=== PATIENT | male | born 1970 | race Caucasian/White ===

== ENCOUNTER 2021-04-25 00:15 | Emergency (ER) | payer MEDICAID ==
[2021-04-25] MEDS ORDERED: cefTRIAXone 1 GM Vial IM ONE (00:57)
--- NOTE | 2021-04-25 00:57 | EDM.PDOC ---
ED HPI GENERAL MEDICAL PROBLEM - General Chief Complaint: ENT Problem Stated Complaint: RIGHT EAR PAIN Time Seen by Provider: 04/25/21 00:57 Source of Information: Reports: Patient History Limitations: Reports: No Limitations - History of Present Illness INITIAL COMMENTS - FREE TEXT/NARRATIVE: pt arrived with severe pain n the rt ear. He has not had drainage from the ear Onset: Gradual, Other (last 3 days) Duration: Hour(s): Location: Reports: Face Associated Symptoms: Reports: No Other Symptoms Right Ear Pain Score (Numeric/FACES): 8 - Related Data Allergies Allergy/AdvReac Type Severity Reaction Status Date / Time No Known Allergies Allergy Verified 04/25/21 00:41 Home Meds: Home Meds NK [No Known Home Meds] 04/25/21 [History] Past Medical History HEENT History: Reports: Impaired Vision Genitourinary History: Reports: Renal Calculus Psychiatric History: Reports: Addiction, Other (See Below) Other Psychiatric History: hx of addiction - Infectious Disease History Infectious Disease History: Reports: Chicken Pox - Past Surgical History HEENT Surgical History: Reports: Tonsillectomy Social & Family History - Tobacco Use Tobacco Use Status *Q: Heavy Tobacco User Years of Tobacco use: 30 Packs/Tins Daily: 1 - Caffeine Use Caffeine Use: Reports: Soda - Recreational Drug Use Recreational Drug Use: Yes 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 ) Respiratory: Reports: No Symptoms Cardiovascular: Reports: No Symptoms Endocrine: Reports: No Symptoms GI/Abdominal: Reports: No Symptoms : Reports: No Symptoms Musculoskeletal: Reports: No Symptoms Skin: Reports: No Symptoms Neurological: Reports: No Symptoms Psychiatric: Reports: Anxiety ED EXAM, ENT - Physical Exam Exam: See Below Text/Narrative:: pt arrived with severe rt ear pain. Exam Limited By: No Limitations General Appearance: Alert, Anxious, Moderate Distress Ears: Other ( rt drum is very red. There is fluid behind the drum and there does appear to be some bulging. ) Nose: Normal Inspection Mouth/Throat: Normal Inspection Head: Atraumatic Neck: Normal Inspection Respiratory/Chest: No Respiratory Distress GI/Abdominal: Soft, Non-Tender Course - Vital Signs Last Recorded V/S: Last Vital Signs Temp 36.3 C 04/25/21 00:37 Pulse 73 04/25/21 00:37 Resp 16 04/25/21 00:37 BP 177/119 H 04/25/21 00:37 Pulse Ox 97 04/25/21 00:37 - Orders/Labs/Meds Meds: Medications Discontinued Medications Generic Name Dose Route Start Last Admin Trade Name Yolande PRN Reason Stop Dose Admin Hydrocodone Bitart/Acetaminophen 1 tab 04/25/21 01:03 04/25/21 01:15 Acetaminophen/Hydrocodone 325-5 Mg Tab PO 04/25/21 01:04 1 tab ONETIME ONE Administration Ceftriaxone Sodium 1 gm 04/25/21 00:57 04/25/21 01:16 Ceftriaxone 1 Gm Vial IM 04/25/21 00:58 1 gm ONETIME ONE Administration Lidocaine HCl Confirm 04/25/21 01:11 04/25/21 01:16 Lidocaine 1% 5 Ml Sdv Administered 04/25/21 01:12 Not Given Dose 5 ml .ROUTE .STK-MED ONE Lidocaine HCl 5 ml 04/25/21 01:16 04/25/21 01:17 Lidocaine 1% 5 Ml Sdv INJECT 04/25/21 01:17 2.1 ml ONETIME ONE Administration - Re-Assessments/Exams Free Text/Narrative Re-Assessment/Exam: 05/05/21 22:30 pt arrived with severe rt sided ear pain. He was given rocephen 1 gm. 05/05/21 22:31 pt was given norco 5/325 po for discomfort. Departure - Departure Time of Disposition: 00:58 Disposition: Home, Self-Care 01 Condition: Fair Clinical Impression: Otitis media - Discharge Information Instructions: Otitis Media, Adult, [id number] Referrals: PCP,None [Primary Care Provider] - Forms: ED Department Discharge Care Plan Goals: tylenol and motrin for pain. push fluids, amoxicillin 500mg tid for 10 days. Becaus of the fluid behind the drum the ear should be rechecked in 10 days. Sepsis Event Note (ED) - Evaluation Sepsis Screening Result: No Definite Risk
[2021-04-25] MEDS ORDERED: Acetaminophen/HYDROcodone 325-5 MG Tab PO ONE (01:03)
== END 2021-04-25 01:53 | disposition home or self-care (01) ==
LOC: JP.ED 00:15
DX: H66.91 Otitis media, unspecified, right ear (principal); Z72.0 Tobacco use
CPT/HCPCS: 96372; 99282; A9270; J0696